=== PATIENT | female | born 1945 | race Caucasian/White ===

== ENCOUNTER → 2017-02-22 | Outpatient (CLI) | payer MEDICARE ==
[~2017-02-22] MED LIST: ACETAMINOPHEN PO; ALPRAZOLAM; AMITRYPTYLINE PO; ARICEPT; ASPIRIN PO; AUGMENTIN PO; CENTRUM PO; CERTAGEN PO; COMBIVENT INH14.7 GM INH; DILANTIN; DILAUDID PO; DIOVAN; DUONEB 2.5-0.5 M3 ML; FAMVIR500 MG; FAMVIR500 MG PO; FERROUS SULFATE PO; FLEXERIL; FLONASE16 GM; IRON PO; KCL PO; LASIX; LASIX PO; LORTAB 10/500 T1 TAB; MAXALT MLT10 MG/TAB; MEDROL; MOBIC; MOBIC PO; NEXIUM PO; PAXIL PO; PRAVACHOL PO; PREVACID PO; ROBITUSSIN-DM120 ML PO
--- NOTE | ~2017-02-22 | CT122 ---
[facility] A Service of [facility] RADIOLOGY TEXT RESULTS PATIENT: YANE BRAUN LOCATION: [facility] : 41 UNIT #: [id number] AGE: [address]: Candelario Rowan MD SEX: F ORDER DR: [id number] [place] [id number] [facility]. [place], [place] [address] [id number] O MR#: [id number] Acc #: [id number] NAME: YANE BRAUN : 1945 SEX: F STUDY DATE/TIME: 02/22/2017 10:50 UNIT: [facility] ROOM: STUDY DESCRIPTION: CT Thoracic Spine Wo Cont Attending Physician: Candelario Rowan M.D. Referring Physician: Candelario Rowan M.D. Ordering Physician: Candelario Rowan M.D. Primary Care Physician: Candelario Rowan M.D. MEDICAL IMAGING REPORT This report is preliminary unless electronic signature is present EXAM Thoracic spine CT without contrast 02/22/2017 PROCEDURE Axial unenhanced thoracic spine CT with multiplanar reformats. This CT examination was performed with one or more of the following radiation dose reduction techniques: automatic exposure control, adjustment of mA and/or kV according to patient size, and iterative reconstruction. COMPARISON None. CLINICAL HISTORY Previous spinal fusion with mid to low back pain radiating down right leg since 2008. FINDINGS There is a thoracic dextroscoliosis. There has been previous lumbar fusion. There is mild thoracic discogenic change but no evidence of acute fracture. There is very slight chronic wedging at T8, but no acute fracture is seen. There is also slight wedging at T12, again without evidence of acute fracture. The paraspinous tissues are unremarkable. IMPRESSION Thoracic scoliosis and some discogenic change as well as mild chronic wedge deformities at T12 and T8, but no acute fracture at any level. Height loss at T8 and T12 is on the order of 5%. Otherwise negative study. [facility] A Service of [facility] RADIOLOGY TEXT RESULTS PATIENT: YANE BRAUN LOCATION: [facility] : 41 UNIT #: [id number] AGE: [address]: Candelario Rowan MD SEX: F ORDER DR: Dictated by... Huey Talamantes M.D. THIS IS AN ELECTRONICALLY VERIFIED REPORT Huey Talamantes M.D. at 03/01/2017 7:32 AM TEV/ibrahima TD: 02/25/2017 16:01 JOB #: [id number] MEDICAL IMAGING REPORT Page 1 of 1 COPY
--- NOTE | ~2017-02-22 | CT98 ---
[facility] A Service of [facility] RADIOLOGY TEXT RESULTS PATIENT: YANE BRAUN LOCATION: [facility] : 41 UNIT #: [id number] AGE: [address]: Candelario Rowan MD SEX: F ORDER DR: [id number] [facility] [address] [place]. [place], [place] [address] [id number] O MR#: [id number] Acc #: [id number] NAME: YANE BRAUN : 1945 SEX: F STUDY DATE/TIME: 02/22/2017 9:54 UNIT: [facility] ROOM: STUDY DESCRIPTION: CT Lumbar Spine Wo Cont Attending Physician: Candelario Rowan M.D. Referring Physician: Candelario Rowan M.D. Ordering Physician: Candelario Rowan M.D. Primary Care Physician: Candelario Rowan M.D. MEDICAL IMAGING REPORT This report is preliminary unless electronic signature is present EXAM CT lumbar spine no contrast 02/22/2017 PROCEDURE Axial unenhanced lumbar CT with multiplanar reformats. This CT exam was performed with one or more of the following radiation dose reduction techniques: automatic exposure control, adjustment of mA and/or kV according to patient size, and iterative reconstruction. HISTORY Mid to low back pain since 2008 now radiating down right leg. COMPARISON MRI lumbar spine dated 05/14/2007 FINDINGS There has been prior lumbar surgery. There are bilateral pedicle screws at L2-L5 and there are disc prosthesis at 2-3, 3-4 and 4-5. There is no evidence of device loosening or failure at any level. There is similarly no convincing solid osseous union across any of the discs, but there is no bone erosion or destruction. There is scoliosis and loss of lordosis. There is discogenic endplate change and slight kyphosis at L1-2, but again no fracture or bone erosion or destruction. The paraspinous tissues are remarkable only for a slight ectasia of the abdominal aorta to 3.1 cm. At L1-2, again there is discogenic change and reversal of lordosis but no canal stenosis, and there is no foraminal stenosis. At 2-3, there is tremendous streak artifact but no convincing canal stenosis and probably no more than minimal foraminal narrowing on either side. [facility] A Service of [facility] RADIOLOGY TEXT RESULTS PATIENT: YANE BRAUN LOCATION: [facility] : 41 UNIT #: [id number] AGE: [address]: Candelario Rowan MD SEX: F ORDER DR: At 3-4, there is streak artifact but no convincing canal stenosis and perhaps minimal if any foraminal narrowing on the right and none on the left. At 4-5, there is again no convincing evidence of canal stenosis though streak artifact limits assessment. There may be borderline to mild right foraminal narrowing at 4-5 and no left foraminal narrowing. At 5-1, there is no canal stenosis and there is [id number] right and mild left foraminal narrowing. IMPRESSION Degenerative and postoperative changes without acute-appearing abnormality at any level. Please see above for level by level details. Dictated by... Huey Talamantes M.D. THIS IS AN ELECTRONICALLY VERIFIED REPORT Huey Talamantes M.D. at 03/01/2017 7:32 AM TEV/to TD: 02/25/2017 19:48 JOB #: [id number] MEDICAL IMAGING REPORT Page 1 of 1 COPY
== END | disposition home or self-care (01) ==
LOC: CCAT 09:45
DX: M54.5 Low back pain (principal); M41.9 Scoliosis, unspecified; M47.896 Other spondylosis, lumbar region; Z98.890 Other specified postprocedural states; M51.84 Other intervertebral disc disorders, thoracic region
CPT/HCPCS: 72128; 72131